=== PATIENT | female | born 1995 | race Caucasian/White ===

== ENCOUNTER 2017-05-08 20:07 | Emergency (ER) | payer BC ==
[2017-05-08 20:34] LABS: Urine Appearance Clear; Urine Color Yellow
[2017-05-08 20:35] LABS: Urine Bilirubin Negative (NEGATIVE); Urine Blood Negative /ul (NEGATIVE); Urine Ketone Negative (NEGATIVE); Urine Nitrite Negative (NEGATIVE); Urine Protein Negative (NEGATIVE); Urine Specific Gravity 1.015 SP.GR. (1.005-1.010); Urine Urobilinogen Normal (NORMAL); Urine pH 6.5 pH (5.0-7.0)
[2017-05-08 20:39] LABS: Urine Bacteria None Seen; Urine RBC None Seen /hpf (0-5); Urine WBC None Seen /hpf (0-5)
--- NOTE | 2017-05-08 21:05 | ERNOTE ---
ER Female HPI Stated Complaint: ABD PAIN Presenting Symptoms: dysuria Time Seen by Provider: 05/08/17 21:04 Source: patient Exam Limitations: no limitations Immunizations: IMMUNIZATION HX Immunizations Up to Date Yes History of Influenza Vaccine No Hx Pneumococcal Vaccination No Allergies/Adverse Reactions: Allergies Penicillins Allergy (Severe, Verified 05/08/17 20:20) Anaphylaxis Home Medications: HOME MEDICATIONS Acetaminophen [Tylenol] 1,000 mg PO PRN PRN 05/08/17 [Last Taken 05/08/17 13:00] Ibuprofen 400 mg PO PRN PRN 05/08/17 [Last Taken 05/08/17 17:00] oxyCODONE HCL/ACETAMINOPHEN [Oxycodone-Acetaminophen 5-325] 1 each PO Q6H PRN # 16 tablet 05/09/17 [Last Taken Unknown] - History of Present Illness Narrative: Patient complains of one day of lower abdominal pain with dysuria. She has been on Clomid for four months, had a regular cycle the last two months, but is having only streaks of blood for this cycle. Pain is right lower quadrant, similar to when her gallbladder was infected, only lower. She has a history of ovarian cysts, she feels this is different because when she stands, she doesn't feel the ovary as she has before. She was seeing a Dr. Stuherland, but her insurance changed, she has an appointment with Dr. Toth late this month. She and her spouse have been actively trying to get . She was vomiting tonight, which is what prompted her to come in here to be looked at. Timing: Present: constant, getting worse Quality: Present: moderate, severe, cramping, stabbing Onset Location: Present: RLQ Activities at Onset: Present: none Prior Abdominal Problems: Present: other - cholecystitis Sexual Millry History: Present: same sex partner Modifying Factors - (Improves): Present: lying down - with the head of the bed raised, rest Modifying Factors - (Worsens): Present: lying down Associated Symptoms: Present: nausea, vomiting, abdominal pain, dysuria, urinary frequency Prior Treatment: Present: recently seen, treated by physician Review of Systems - Review of Systems Constitutional: Absent: recent illness, fever, chills, weakness EYE: Present: no symptoms reported ENT: Absent: ear pain, sore throat Respiratory: Absent: shortness of breath, cough Cardiology: Absent: chest pain, syncope Gastrointestinal/Abdominal: Present: nausea, vomiting, diarrhea - chronic since she had her gallbladder removed Genitourinary: Present: frequency, pain, dysuria Musculoskeletal: Present: back pain - right lower quadrant Skin: Absent: rash Neurological: Present: no symptoms reported - Patient's Past Medical History Patient History - Medical: Chronic Pain, GERD, Obesity, UTI'S, Other Patient History - Cardiac/Respiratory: No pertinent hx Patient History - Cancer: No Hx of Cancer Patient History - Surgical Procedures: Cholecystectomy, T & A Patient History - Other: None LMP (females 10-50): now LMP (Calendar): 01/15/16 - Family History Grandfather-Paternal Family History - Cardiac/Respiratory: Coronary Heart Disease, CHF, Myocardial Infarction Grandmother-Maternal Family History - Cardiac/Respiratory: Coronary Heart Disease - Social History Living Situations: home Psych History: Hx of Bipolar Disorder Smoking Status: Never smoker Alcohol Use: occasionally Drug Use: none - Immunizations Immunizations Up to Date: Yes Hx Pneumococcal Vaccination: No History of Influenza Vaccine: No ED Progress - Results and Orders Patient's Lab Results:: I have reviewed the patient's lab results. Results and Orders: no acute changes noted - Vital Signs Patient's Vital Signs:: I have reviewed the patient's vital signs. Vital Signs: Vital Signs 05/08/17 05/08/17 20:15 20:43 Temperature 36.3 C L Pulse Rate 78 82 Respiratory 18 16 Rate Blood Pressure 133/78 127/65 O2 Sat by Pulse 98 95 Oximetry - CT/Ultrasound CT/Ultrasound Narrative: Ultrasound Pelvis: Unremarkable uterus. 4.8 x 2.8 x 4.0 right ovarian cyst. Doppler flow seen within both ovaries. 8 mm follicle within the left ovary. - Progress/Reassessment Chief Complaint: Genitourinary Problem Plan - Plan Plan: Toradol 30 mg IV - no relief from pain. Dilaudid 2 mg IV - pain down to a 4. Percocet 5/325 mg #4 to go Departure Clinical Impression: Right ovarian cyst, Abdominal pain, RLQ (right lower quadrant) - Departure Disposition: Home self-care Condition: Good Instructions: Ovarian Cyst, [id number] Referrals: Scott Toth DO [Staff Physician] - (2-3 days, please call to see if you can get in sooner than your set appointment on 06/07/2017) Prescriptions: oxyCODONE HCL/ACETAMINOPHEN [Oxycodone-Acetaminophen 5-325] 1 each PO Q6H PRN # 16 tablet PRN Reason: Pain
[2017-05-08 21:09] LABS: Hematocrit 38.1 % (37.0-47.0); Hemoglobin 12.5 gm/dL (12.5-16.0); Mean Cell Volume 84.5 fl (78-100); Mean Corpuscular Hemoglobin 27.7 pg (27-31); Mean Corpuscular Hgb Conc 32.8 g/dl (32-36); Mean Platelet Volume 10.4 fl (6.0-9.5); Neutrophil # 5.7 K/mm3 (1.3-6.0); Neutrophil % 62.5 % (42-75.0); Platelet Count 216 K/mm3 (150-450); Red Blood Count 4.51 M/mm3 (4.2-5.4); Red Cell Distribution Width 13.2 % (11.5-14.0); White Blood Count 9.1 K/mm3 (4.0-10.5)
[2017-05-08 21:21] LABS: Anion Gap 11.4 mmol/L (6.8-13.8); BUN/Creatinine Ratio 10.8 (9.0-21.6); Bilirubin, Total 0.6 mg/dL (0.0-1.1); Calcium * 8.5 mg/dL (7.9-10.9); Potassium 3.4 mmol/L (3.4-4.6); Total Protein 6.8 gm/dL (6.2-8.2)
[2017-05-08] MEDS ORDERED: KETOROLAC TROMETHAMINE 30 MG/ML VIAL IV ONE (22:27)
[2017-05-08] MEDS ORDERED: KETOROLAC TROMETHAMINE 30 MG/ML VIAL ONE (22:34)
[2017-05-09] MEDS ORDERED: HYDROmorphone HCL 2 MG/ML VIAL IV ONE (00:30)
[2017-05-09] MEDS ORDERED: HYDROmorphone HCL 2 MG/ML VIAL ONE (00:31)
[2017-05-09] MEDS ORDERED: oxyCODONE HCL/ACETAMINOPHEN 1 TAB TABLET PO ONE (01:17)
[2017-05-09] MEDS ORDERED: oxyCODONE HCL/ACETAMINOPHEN 1 TAB TABLET ONE (01:20)
[2017-05-09 01:32] VITALS: BP 107/50
== END 2017-05-09 01:31 | disposition home or self-care (01) ==
LOC: ER 20:07
DX: N83.201 Unspecified ovarian cyst, right side (principal); R10.31 Right lower quadrant pain

== ENCOUNTER 2018-07-11 10:15 | Inpatient (IN) ==
[2018-07-11] MEDS ORDERED: OXYTOCIN/DEXTROSE 5%-WATER 30 UNITS/500 ML BAG IV ONE (11:05)
[2018-07-11] MEDS ORDERED: LIDOCAINE HCL 50 ML VIAL PERI PRN (11:05)
[2018-07-11] MEDS ORDERED: RINGER'S SOLUTION,LACTATED 1,000 ML IV ONE (11:05)
[2018-07-11] MEDS ORDERED: DEXTROSE 5%-LACTATED RINGERS 1,000 ML IV PRN (11:05)
[2018-07-11] MEDS: MISOPROSTOL 100 MCG TABLET VG PRN ×2 (11:31→15:31)
[2018-07-11 11:33] LABS: Hematocrit 34.3 % (37.0-47.0); Hemoglobin 11.4 gm/dL (12.5-16.0); Mean Cell Volume 93.2 fl (78-100); Mean Corpuscular Hgb Conc 33.2 g/dl (32-36); Mean Platelet Volume 11.3 fl (8-12.5); Neutrophil # 8.7 K/mm3 (1.3-6.0); Neutrophil % 79.8 % (42-75.0); Platelet Count 167 K/mm3 (150-450); Red Blood Count 3.68 M/mm3 (4.2-5.4); Red Cell Distribution Width 14.2 % (11.5-14.0); White Blood Count 10.9 K/mm3 (4.0-10.5)
[2018-07-11 11:41] LABS: Random Urine Total Protein 17.9 mg/dL (0-12)
[2018-07-11 11:42] LABS: Albumin * 2.1 gm/dl (3.4-5.0); Anion Gap 11.1 mmol/L (6.8-13.8); Bilirubin, Total 0.2 mg/dL (0.0-1.1); Ca. Corrected For Albumin 9.9 mg/dL (8.4-10.2); Calcium * 8.7 mg/dL (7.9-10.9); Carbon Dioxide 23.5 mmol/L (24-32.6); Potassium 3.6 mmol/L (3.4-4.6); Total Protein 6.3 gm/dL (6.2-8.2)
[2018-07-11 11:44] LABS: Cocaine Ur Negative (NEGATIVE); Urine Barbiturate Negative (NEGATIVE); Urine Benzodiazepines Negative (NEGATIVE); Urine Opiates Negative (NEGATIVE); Urine PCP Negative (NEGATIVE); Urine THC Negative (NEGATIVE)
[2018-07-11] MEDS: CLINDAMYCIN PHOSPHATE 900 MG in DEXTROSE 5 % IN WATER 100 ML IV SCH ×4 (11:49→18:49)
--- NOTE | 2018-07-11 17:32 | HP ---
Chief Complaint - Chief Complaint Date of Service: 07/11/18 Time of Service: 17:17 Chief Complaint: elevated blood pressures History of Present Illness: 23 yo at 39 weeks presents to office for routine OB visit with elevated blood pressures. Because of previous intermittent elevated blood pressures over the past couple weeks and at 39wks she was admitted to L&D for induction of labor due to GHTN. Preeclamptic labs were WNL. This complicated by morbid obesity (BMI 54.7), h/o recurrent SAB, biploar d/o, depression, migraines, PCOS with insulin resistance, gestational hypertension. 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 05/2016 Spontaneous x4 Surgical History: Surgical History (Last Reviewed 07/11/18 @ 17:23 by Scott Toth DO) History of myringotomy Onset Date: ~1997 History of tonsillectomy and adenoidectomy Onset Date: ~2004 Hx of cholecystectomy Onset Date: ~2009 Family History: Family History (Last Reviewed 07/05/18 @ 15:39 by Sola Ramey RN) Father Irregular heart beat Mother Rheumatoid arthritis Osteoarthritis Hypoglycemia Grandfather Seizure disorder CHF (congestive heart failure) Grandfather Heart disease CVD-triple bypass Grandmother Diabetes Heart disease COPD (chronic obstructive pulmonary disease) Grandmother Heart disease Hiatal hernia Social History: Preferred Language Yoruba Smoking Status Never smoker Psych History Hx of Bipolar Disorder (Last Updated 07/11/18 @ 10:08 by Scott Toth DO) No Social History Section defined Review Of Systems (GEN) - Review of Systems Generalized/Overall Review: Present: No Symptoms Reported EENTM: Present: No Symptoms Reported Respiratory: Present: No Symptoms Reported Cardiac: Present: No Symptoms Reported Abdominal: Present: No Symptoms Reported Genitourinary: Present: No Symptoms Reported Musculoskeletal: Present: No Symptoms Reported Neurological: Present: No Symptoms Reported Skin: Present: No Symptoms Reported Endocrine: Present: No Symptoms Reported Immunizations: IMMUNIZATION HX Immunizations Up to Date Yes History of Influenza Vaccine No Hx Pneumococcal Vaccination No Allergies/Adverse Reactions: Allergies Allergy/AdvReac Type Severity Reaction Status Date / Time Penicillins Allergy Severe Anaphylaxis Verified 07/11/18 10:26 methylphenidate AdvReac Severe Other Verified 07/11/18 10:27 [From Ritalin] Home Medications: HOME MEDICATIONS Vit37/Iron/Folic Acid [Prenata Chewable Tablet] 1 ea PO DAILY 01/24/18 [Last Taken 07/10/18] Magnesium Oxide [Magnesium] 1,000 mg PO DAILY 04/25/18 [Last Taken 07/10/18] ascorbic acid (vitamin C) 500 mg capsule 500 mg PO DAILY cap 05/08/18 [Last Taken 07/10/18] docusate sodium 100 mg capsule 100 mg PO DAILY 05/23/18 [Last Taken 07/10/18] Ferrous Sulfate [Iron] 325 mg PO DAILY 07/05/18 [Last Taken 07/10/18] Exam - Exam Vital Signs: Vital Signs - Last Taken Temp 36.8 C 07/11/18 10:45 Pulse 86 07/11/18 10:45 Resp 18 07/11/18 10:45 BP 168/78 H 07/11/18 10:45 Pulse Ox 99 07/11/18 10:45 Constitutional: Present: Alert, Oriented x3, Cooperative, No distress ENT Exam: Present: hearing grossly normal Breasts: Present: Exam deferred Respiratory: Present: lungs clear, no respiratory distress Cardiovascular/Chest: Present: normal peripheral pulses, regular rate, rhythm, no edema Abdomen: Present: soft, other - gravid /Rectal: Present: Other - cervix Extremity: Present: non-tender, no calf tenderness, pedal edema Skin Exam: Present: normal color, warm/dry, no cyanosis Lymphatic: Present: no adenopathy Neurologic: Present: alert, normal mood/affect, oriented x 3 Appearance: Present: appropriate appearance, appropriate insight Eye contact: Present: cooperative, good eye contact, normal speech Thoughts: Present: normal thought pattern Diagnostic Studies: Abnormal Lab Results 07/11/18 07/11/18 07/11/18 Range/Units 10:15 11:15 11:15 WBC 10.9 H (4.0-10.5) K/mm3 RBC 3.68 L (4.2-5.4) M/mm3 Hgb 11.4 L (12.5-16.0) gm/dL Hct 34.3 L (37.0-47.0) % RDW 14.2 H (11.5-14.0) % Neutrophils % 79.8 H (42-75.0) % Lymphocytes % 13.7 L (20-51) % Neutrophils # 8.7 H (1.3-6.0) K/mm3 Lymphocytes # 1.49 L (1.5-3.5) k/mm3 Carbon Dioxide 23.5 L (24-32.6) mmol/L Random Glucose 133 H (70-110) mg/dL Albumin 2.1 L (3.4-5.0) gm/dl U Random Total Protein 17.9 H (0-12) mg/dL Laboratory Results WBC 10.9 K/mm3 (4.0-10.5) H 07/11/18 11:15 RBC 3.68 M/mm3 (4.2-5.4) L 07/11/18 11:15 Hgb 11.4 gm/dL (12.5-16.0) L 07/11/18 11:15 Hct 34.3 % (37.0-47.0) L 07/11/18 11:15 MCV 93.2 fl (78-100) 07/11/18 11:15 MCH 31.0 pg (27-31) 07/11/18 11:15 MCHC 33.2 g/dl (32-36) 07/11/18 11:15 RDW 14.2 % (11.5-14.0) H 07/11/18 11:15 Plt Count 167 K/mm3 (150-450) 07/11/18 11:15 MPV 11.3 fl (8-12.5) 07/11/18 11:15 Immature Gran % (Auto) 0.30 % (0.001-0.429) 07/11/18 11:15 Immature Gran # (Auto) 0.03 K/mm3 (0.000-0.0310) 07/11/18 11:15 Neutrophils % 79.8 % (42-75.0) H 07/11/18 11:15 Lymphocytes % 13.7 % (20-51) L 07/11/18 11:15 Monocytes % 4.6 % (0.0-9) 07/11/18 11:15 Eosinophils % 1.4 % (0.0-3.0) 07/11/18 11:15 Basophils % 0.2 % (0.0-1.0) 07/11/18 11:15 Nucleated RBC % 0.0 k/mm3 (0-1) 07/11/18 11:15 Neutrophils # 8.7 K/mm3 (1.3-6.0) H 07/11/18 11:15 Lymphocytes # 1.49 k/mm3 (1.5-3.5) L 07/11/18 11:15 Monocytes # 0.5 k/mm3 (0.0-1.0) 07/11/18 11:15 Eosinophils # 0.2 k/mm3 (0.0-0.7) 07/11/18 11:15 Absolute Basophils 0.0 k/mm3 (0.0-0.1) 07/11/18 11:15 Sodium 135 mmol/L (132-142) 07/11/18 11:15 Plasma Sodium 136 mmol/L (130-142) 07/11/18 11:15 Potassium 3.6 mmol/L (3.4-4.6) 07/11/18 11:15 Chloride 104 mmol/L (97-106) 07/11/18 11:15 Carbon Dioxide 23.5 mmol/L (24-32.6) L 07/11/18 11:15 Anion Gap 11.1 mmol/L (6.8-13.8) 07/11/18 11:15 BUN 6 mg/dL (3-23) 07/11/18 11:15 Creatinine 0.67 mg/dL (0.4-1.4) 07/11/18 11:15 Est GFR (Non-Af Amer) 115 mL/min (60-130) 07/11/18 11:15 BUN/Creatinine Ratio 9.0 (9.0-21.6) 07/11/18 11:15 Random Glucose 133 mg/dL (70-110) H 07/11/18 11:15 Calcium 8.7 mg/dL (7.9-10.9) 07/11/18 11:15 Calcium Adj for Albumin 9.9 mg/dL (8.4-10.2) 07/11/18 11:15 Total Bilirubin 0.2 mg/dL (0.0-1.1) 07/11/18 11:15 AST 17 U/L (0-48) 07/11/18 11:15 ALT 22 U/L (19-67) 07/11/18 11:15 Alkaline Phosphatase 65 U/L (50-170) 07/11/18 11:15 Total Protein 6.3 gm/dL (6.2-8.2) 07/11/18 11:15 Albumin 2.1 gm/dl (3.4-5.0) L 07/11/18 11:15 Ur Random Creatinine 110.9 mg/dL (60-200) 07/11/18 10:15 U Random Total Protein 17.9 mg/dL (0-12) H 07/11/18 10:15 U [place] Prot/Creat Ratio 161 mg/gm (0-199) 07/11/18 10:15 Urine Opiates Screen Negative (NEGATIVE) 07/11/18 10:15 Barbiturate Screen Negative (NEGATIVE) 07/11/18 10:15 Ur Phencyclidine Scrn Negative (NEGATIVE) 07/11/18 10:15 Urine Amphetamine Negative (NEGATIVE) 07/11/18 10:15 U Benzodiazepines Scrn Negative (NEGATIVE) 07/11/18 10:15 Urine Cocaine Screen Negative (NEGATIVE) 07/11/18 10:15 Urine Marijuana (THC) Negative (NEGATIVE) 07/11/18 10:15 NST reactive. FHT 120 bpm, accels with occasional varialbe decels, contractions absent Assessment/Plan - Assessment/Plan (1) Gestational hypertension Assessment: Admit for induction of labor. Epidural PRN. Problem: Acute Qualifiers: Trimester: third trimester Qualified Code(s): O13.3 - Gestational [-induced] hypertension without significant proteinuria, third trimester (2) BMI 50.0-59.9, adult Problem: Chronic (3) Migraines Problem: Chronic Qualifiers: Migraine type: unspecified Status migrainosus presence: without status migrainosus Intractability: not intractable Qualified Code(s): G43.909 - Migraine, unspecified, not intractable, without status migrainosus (4) Bipolar disease during Problem: Chronic Qualifiers: Trimester: third trimester Qualified Code(s): O99.343 - Other mental disorders complicating , third trimester; F31.9 - Bipolar disorder, unspecified (5) Polycystic ovary syndrome Problem: Chronic (6) Insulin resistance Problem: Chronic
--- NOTE | 2018-07-11 18:00 | ANES ---
Anesthesia Pre Procedure Eval Vitals/Labs: Last Vital Signs Temp 36.8 C 07/11/18 10:45 Pulse 88 07/11/18 11:45 Resp 18 07/11/18 11:45 BP 121/56 07/11/18 11:45 Pulse Ox 97 07/11/18 11:45 HOME MEDICATIONS Vit37/Iron/Folic Acid [Prenata Chewable Tablet] 1 ea PO DAILY 01/24/18 [Last Taken 07/10/18] Magnesium Oxide [Magnesium] 1,000 mg PO DAILY 04/25/18 [Last Taken 07/10/18] ascorbic acid (vitamin C) 500 mg capsule 500 mg PO DAILY cap 05/08/18 [Last Taken 07/10/18] docusate sodium 100 mg capsule 100 mg PO DAILY 05/23/18 [Last Taken 07/10/18] Ferrous Sulfate [Iron] 325 mg PO DAILY 07/05/18 [Last Taken 07/10/18] Allergies/Adverse Reactions: Allergies Allergy/AdvReac Type Severity Reaction Status Date / Time Penicillins Allergy Severe Anaphylaxis Verified 07/11/18 10:26 methylphenidate AdvReac Severe Other Verified 07/11/18 10:27 [From Ritalin] - Planned Procedure Planned Procedure: INDUCTION Medication List Reviewed:: Yes Allergies Verified: Yes Medical History (Last Reviewed 07/11/18 @ 17:58 by Lópze Lujan CRNA) Bipolar disorder Depression Hyperinsulinemia Insulin resistance Onset Date: ~05/10/17 Irritable bowel syndrome Migraine Morbid obesity PCOS (polycystic ovarian syndrome) Bacterial vaginosis Chlamydia Onset Date: ~2013 Irregular menstrual cycle Ovarian cyst PID (pelvic inflammatory disease) Onset Date: ~2013 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 05/2016 Spontaneous x4 Surgical History (Last Reviewed 07/11/18 @ 17:58 by López Lujan CRNA) History of myringotomy Onset Date: ~1997 History of tonsillectomy and adenoidectomy Onset Date: ~2004 Hx of cholecystectomy Onset Date: ~2009 Family History (Last Reviewed 07/11/18 @ 17:58 by López Lujan CRNA) Father Irregular heart beat Mother Rheumatoid arthritis Osteoarthritis Hypoglycemia Grandfather Seizure disorder CHF (congestive heart failure) Grandfather Heart disease CVD-triple bypass Grandmother Diabetes Heart disease COPD (chronic obstructive pulmonary disease) Grandmother Heart disease Hiatal hernia - Family Anesthesia History Family History:: no untoward family reactions to anesthesia, no familial bleeding tendencies, no family history of clotting disorders, no family history of premature - Airway/Neck/Teeth Within Normal Limits:: Yes Teeth Condition: Intact Neck Exam: non-tender, full range of motion Mallampatti Score: 2 Thyromental (T-M) distance: > 6 cm Mandibulo Hyoid distance: > 3 cm - Respiratory Respiratory: chest non-tender Discussed smoking cessation including day of surgery: Yes Sleep Apnea currently treated: No Sleep Apnea by current assessment: No - possible by habitus Discussed Risks/Treatment of MARCELA: No - Cardiovascular Patient History - Cardiac/Respiratory: No pertinent hx Tolerates Activity: Fair Heart Sounds: S1 & S2, Regular - Anesthesia Assessment and Plan ASA Class: PS, III, E Anesthesia Type Plan: Epidural
--- NOTE | 2018-07-11 19:46 | PN ---
Progess Note - Interim Date: 07/11/18 Time: 19:39 Narrative: 07/11/18 19:39 Patient rates her contractions 4 out of 10 Vital signs stable. Status post Cytotec 2 doses FHT: 120 baseline, reassuring Contractions q 5 min Cervix: 09/06/-3, cervical Dorsey bulb placed without difficulty and filled to 75 mL of saline Impression: Intrauterine at 39 weeks induction of labor for gestational hypertension. GBS carrier - status post clindamycin 2 doses Plan: Continue with induction of labor
--- NOTE | 2018-07-11 21:37 | PN ---
Progess Note - Interim Date: 07/11/18 Time: 21:35 Narrative: 07/11/18 21:35 Patient becoming much more uncomfortable with contractions Vital signs stable. FHT: 125 baseline, reassuring Contractions q 1-2 min Cervix: 2 cm, Dorsey bulb still in place Impression: Intrauterine at 39 weeks induction of labor for gestational hypertension Plan: Continue present plan
[2018-07-11] MEDS ORDERED: ONDANSETRON HCL/PF 2 MG/ML VIAL IV PRN (23:09)
[2018-07-12] MEDS ORDERED: BUPIVACAINE HCL/0.9 % NACL/PF 250 ML EP PRN (01:42)
[2018-07-12] MEDS ORDERED: ONDANSETRON HCL/PF 2 MG/ML VIAL IV PRN ×2 (01:42→20:33)
[2018-07-12] MEDS ORDERED: NALOXONE HCL 1 MG/1 ML SYRG IV PRN (01:42)
[2018-07-12] MEDS ORDERED: fentaNYL CITRATE/PF 50 MCG/ML AMPUL IT SCH (01:45)
--- NOTE | 2018-07-12 02:22 | ANES ---
Anesthesia Pre Procedure Eval Vitals/Labs: Last Vital Signs Temp 36.2 C 07/12/18 01:53 Pulse 84 07/12/18 01:53 Resp 20 07/12/18 01:53 BP 137/65 07/12/18 01:53 Pulse Ox 99 07/12/18 01:53 HOME MEDICATIONS Vit37/Iron/Folic Acid [Prenata Chewable Tablet] 1 ea PO DAILY 01/24/18 [Last Taken 07/10/18] Magnesium Oxide [Magnesium] 1,000 mg PO DAILY 04/25/18 [Last Taken 07/10/18] ascorbic acid (vitamin C) 500 mg capsule 500 mg PO DAILY cap 05/08/18 [Last Taken 07/10/18] docusate sodium 100 mg capsule 100 mg PO DAILY 05/23/18 [Last Taken 07/10/18] Ferrous Sulfate [Iron] 325 mg PO DAILY 07/05/18 [Last Taken 07/10/18] Allergies/Adverse Reactions: Allergies Allergy/AdvReac Type Severity Reaction Status Date / Time Penicillins Allergy Severe Anaphylaxis Verified 07/11/18 10:26 methylphenidate AdvReac Severe Other Verified 07/11/18 10:27 [From Ritalin] - Planned Procedure Planned Procedure: INDUCTION Medication List Reviewed:: Yes Allergies Verified: Yes Medical History (Last Reviewed 07/12/18 @ 02:20 by López Lujan CRNA) Bipolar disorder Depression Hyperinsulinemia Insulin resistance Onset Date: ~05/10/17 Irritable bowel syndrome Migraine Morbid obesity PCOS (polycystic ovarian syndrome) Bacterial vaginosis Chlamydia Onset Date: ~2013 Irregular menstrual cycle Ovarian cyst PID (pelvic inflammatory disease) Onset Date: ~2013 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 05/2016 Spontaneous x4 Surgical History (Last Reviewed 07/12/18 @ 02:20 by López Lujan CRNA) History of myringotomy Onset Date: ~1997 History of tonsillectomy and adenoidectomy Onset Date: ~2004 Hx of cholecystectomy Onset Date: ~2009 Family History (Last Reviewed 07/12/18 @ 02:21 by López Lujan CRNA) Father Irregular heart beat Mother Rheumatoid arthritis Osteoarthritis Hypoglycemia Grandfather Seizure disorder CHF (congestive heart failure) Grandfather Heart disease CVD-triple bypass Grandmother Diabetes Heart disease COPD (chronic obstructive pulmonary disease) Grandmother Heart disease Hiatal hernia - Family Anesthesia History Family History:: no untoward family reactions to anesthesia, no familial bleeding tendencies, no family history of clotting disorders, no family history of premature - Airway/Neck/Teeth Within Normal Limits:: Yes Teeth Condition: Intact Neck Exam: non-tender, full range of motion Mallampatti Score: 2 Thyromental (T-M) distance: > 6 cm Mandibulo Hyoid distance: > 3 cm - Respiratory Respiratory: chest non-tender, lungs clear Smoking Status: Never smoker Sleep Apnea currently treated: No Sleep Apnea by current assessment: No - Cardiovascular Patient History - Cardiac/Respiratory: No pertinent hx Tolerates Activity: Fair Heart Sounds: S1 & S2, Regular - Anesthesia Assessment and Plan ASA Class: PS, III, E Anesthesia Type Plan: Epidural
--- NOTE | 2018-07-12 02:51 | ANES ---
Post Anesthesia Discharge - Transfer of Care Transfer of Care handoff given to nurse: Yes - Discharge from PACU Discharge from PACU when meets criteria: Yes - Comfortable now
--- NOTE | 2018-07-12 02:54 | ANES ---
Anesthesia Procedure Note Procedure Note: ANESTHESIA PROCEDURE NOTE Date of Procedure: 07/12/2018 Time of procedure: To 2:25 AM. Performed by: López Lujan CRNA, MSN Bench Assembler Battery: Gwendolyn Medina RN. Preprocedure diagnosis: Active labor, labor pain. Post procedure diagnosis: Same. Procedure:Epidural for labor analgesia L3 4. Indications: Labor pain. Findings: See below. Details of the procedure: The patient was placed on the side of the bed in sitting positionand prepped with DuraPrep then draped in a sterile fashion. Lidocaine 1% was infiltrated to the skin and subcutaneous tissues at the level of the L3 4 interspace. An 18-gauge Touhy needle was used to approach the epidural space with loss of resistance technique. Once loss of resistance was achieved a 27-gauge spinal needle was passed through the epidural needle and CSF was contacted. After CSF returned, 20 mcg of fentanyl was injected in the spinal needle was removed the epidural catheter was then threaded approximately 4 cm in the epidural needle was removed. The catheter was taped in place and after careful aspiration 3 mL of 1.5% lidocaine with 1-200,000 epinephrine was injected without change in maternal heart rate or sensorium. . EBL: Minimal. Fluids: N/A. Specimen: N/A. Post procedure condition: The patient tolerated the procedure well with good relief. No complications were noted. Thank you for this consultation. López Lujan CRNA, MSN
--- NOTE | 2018-07-12 03:05 | ANES ---
Post Anesthesia Assessment - Vital Signs Vitals: Last Vital Signs Temp 36.2 C 07/12/18 01:53 Pulse 84 07/12/18 01:53 Resp 20 07/12/18 01:53 BP 137/65 07/12/18 01:53 Pulse Ox 99 07/12/18 01:53 Airway Patency: Normal - Mental Status Level Of Consciousness: Awake, Alert - Pain Level Pain Score: 0 - N/V Assessment Nausea/Vomiting Presence: None Dehydration:: No
[2018-07-12] MEDS: CLINDAMYCIN PHOSPHATE 900 MG in DEXTROSE 5 % IN WATER 100 ML IV SCH ×6 (03:39→18:13)
--- NOTE | 2018-07-12 17:24 | PN ---
Progess Note - Interim Date: 07/12/18 Time: 17:18 Narrative: 07/12/18 17:18 Patient comfortable with epidural Vital signs stable. Pitocin at 20 mu/min. FHT: 135 baseline, reassuring Contractions q 1-3 min Cervix: 4/40/-4 Impression: Intrauterine at 39-1/7 weeks induction of labor for gestational hypertension. Group B strep carrier-status post clindamycin 4 doses Plan: Patient is been 4 cm for the past 4-1/2 hours. If no cervical change with the next do position changes will proceed with primary low transverse section.
[2018-07-12] MEDS ORDERED: ceFAZolin SODIUM 3 GM in DEXTROSE 5 % IN WATER 100 ML IV ONE ×2 (17:52)
[2018-07-12] MEDS ORDERED: RINGER'S SOLUTION,LACTATED 1,000 ML IV PRN (17:52)
[2018-07-12] MEDS ORDERED: OXYTOCIN 20 UNITS in RINGER'S SOLUTION,LACTATED 1,000 ML IV ONE (17:52)
[2018-07-12] MEDS ORDERED: AZTREONAM 2 GM in DEXTROSE 5 % IN WATER 100 ML IV ONE ×2 (18:02)
--- NOTE | 2018-07-12 18:25 | ANES ---
Anesthesia Pre Procedure Eval Vitals/Labs: Last Vital Signs Temp 36.2 C 07/12/18 01:53 Pulse 84 07/12/18 01:53 Resp 20 07/12/18 01:53 BP 137/65 07/12/18 01:53 Pulse Ox 99 07/12/18 01:53 HOME MEDICATIONS Vit37/Iron/Folic Acid [Prenata Chewable Tablet] 1 ea PO DAILY 01/24/18 [Last Taken 07/10/18] Magnesium Oxide [Magnesium] 1,000 mg PO DAILY 04/25/18 [Last Taken 07/10/18] ascorbic acid (vitamin C) 500 mg capsule 500 mg PO DAILY cap 05/08/18 [Last Taken 07/10/18] docusate sodium 100 mg capsule 100 mg PO DAILY 05/23/18 [Last Taken 07/10/18] Ferrous Sulfate [Iron] 325 mg PO DAILY 07/05/18 [Last Taken 07/10/18] Allergies/Adverse Reactions: Allergies Allergy/AdvReac Type Severity Reaction Status Date / Time Penicillins Allergy Severe Anaphylaxis Verified 07/11/18 10:26 methylphenidate AdvReac Severe Other Verified 07/11/18 10:27 [From Ritalin] - Planned Procedure Planned Procedure: INDUCTION Medication List Reviewed:: Yes Allergies Verified: Yes Medical History (Last Reviewed 07/12/18 @ 18:24 by Jorge A Izaguirre CRNA) Bipolar disorder Depression Hyperinsulinemia Insulin resistance Onset Date: ~05/10/17 Irritable bowel syndrome Migraine Morbid obesity PCOS (polycystic ovarian syndrome) Bacterial vaginosis Chlamydia Onset Date: ~2013 Irregular menstrual cycle Ovarian cyst PID (pelvic inflammatory disease) Onset Date: ~2013 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 05/2016 Spontaneous x4 Surgical History (Last Reviewed 07/12/18 @ 18:24 by Jorge A Izaguirre CRNA) History of myringotomy Onset Date: ~1997 History of tonsillectomy and adenoidectomy Onset Date: ~2004 Hx of cholecystectomy Onset Date: ~2009 Family History (Last Reviewed 07/12/18 @ 18:24 by Jorge A Izaguirre CRNA) Father Irregular heart beat Mother Rheumatoid arthritis Osteoarthritis Hypoglycemia Grandfather Seizure disorder CHF (congestive heart failure) Grandfather Heart disease CVD-triple bypass Grandmother Diabetes Heart disease COPD (chronic obstructive pulmonary disease) Grandmother Heart disease Hiatal hernia - Family Anesthesia History Family History:: no untoward family reactions to anesthesia - Airway/Neck/Teeth Within Normal Limits:: Yes Teeth Condition: Intact Denture Type: None Neck Exam: full range of motion, normal inspection Mallampatti Score: 2 Thyromental (T-M) distance: > 6 cm Mandibulo Hyoid distance: > 3 cm - Respiratory Respiratory: lungs clear, normal breath sounds Smoking Status: Never smoker Sleep Apnea currently treated: No Sleep Apnea by current assessment: No - Cardiovascular Patient History - Cardiac/Respiratory: No pertinent hx Tolerates Activity: Fair Heart Sounds: S1 & S2, Regular - Anesthesia Assessment and Plan ASA Class: PS, III, E Anesthesia Type Plan: Epidural
--- NOTE | 2018-07-12 18:48 | PN ---
Progess Note - Interim Date: 07/12/18 Time: 18:47 Narrative: 07/12/18 18:47 Patient has made no cervical change. head still unengaged. Will proceed with primary low transverse section. All questions answered. tracing remains reassuring.
--- NOTE | 2018-07-12 20:25 | ANES ---
Post Anesthesia Discharge - Transfer of Care Transfer of Care handoff given to nurse: Yes - Discharge from PACU Discharge from PACU when meets criteria: Yes
--- NOTE | 2018-07-12 20:26 | ANES ---
Post Anesthesia Assessment - Vital Signs Vitals: Last Vital Signs Temp 37.2 C 07/12/18 20:10 Pulse 88 07/12/18 20:15 Resp 16 07/12/18 20:15 BP 84/49 L 07/12/18 20:15 Pulse Ox 98 07/12/18 20:15 Airway Patency: Normal - Mental Status Level Of Consciousness: Awake - Pain Level Pain Score: 0 - N/V Assessment Nausea/Vomiting Presence: None Dehydration:: No
--- NOTE | 2018-07-12 20:27 | OR ---
Operative Report - Dictated Report Narrative: Indication: 23 year old 5 para 0 at 39-1/7 weeks admitted for induction of labor due to gestational hypertension. After 32 hours of induction with maximum Pitocin patient failed to progress past 4 cm/40/-4 Status: Planned Pre Operative Diagnosis: Intrauterine at 39-1/7 weeks, arrest of dilation, arrest of descent, morbid obesity with BMI of 54.7, history of recurrent SAB, bipolar disorder, PCOS with insulin resistance Post Operative Diagnosis: Same. Procedure Preformed: Primary Low Transverse Section Surgeon: Janeen Toth DO Market Research Specialist: Bubba Medrano M.D. Anesthesia: Epidural Estimated Blood Loss: 900 mL Urine Output: 200 mL Fluids Given: 1200 mL Drains: Bradley to gravity Surgical Complications: None Specimens: Placenta to freezer Findings: Female born at 1919 on 07/12/2019 with Apgars 8 and 9, weighing 3079 g in cephalic presentation with nuchal cord 2. Normal uterus, tubes, ovaries. Technique: The patient was taken to the operating room and placed in dorsal supine position with a left lateral tilt. After adequate epidural anesthesia, bradley catheter insertion,SCDs placed, and 900 mg of clindamycin and 2 g of aztreonam IV given preoperatively, the abdominal cavity was entered via a modified Cleveland-Jenkins incision. Two rolled laps were placed in the pericolic gutters on either side of the uterus. A transverse incision was made in the lower uterine segment and extended laterally and upwardly with digital traction. Clear fluid was noted upon amniotomy. The was delivered easily. The cord was clamped and cut and was handed off to awaiting pediatricians. The placenta was allowed to deliver spontaneously. The uterus was cleared of clot and debris. Uterine incision was closed with 0 Vicryl using a running stitch. A second imbricating layer was placed. Excellent hemostasis was noted. Rolled laps were removed from the abdominal cavitiy. The peritoneum was closed with a running 3-0 Monocryl. The same suture was used to approximate the rectus and pyramidalis muscles. The fascia was closed with a running 0 Vicryl. The subcutaneous layer was closed with a running 3-0 Monocryl in 2 layers. The same suture was used to approximate the subdermal layer. The skin was closed with a running 4-0 Monocryl and Dermabond. Sponge, lap, needle, and instrument count were correct x 2. Disposition: The patient was transferred to post anesthesia care unit in good condition History for MU Definition: * The number of deliveries resulting in a live the patient experienced prior to current hospitalization * The previous delivery of live twins or any live multiple gestation is considered one live event. *If primagravida or nulliparous is documented select zero for the number of previous live births. Live Events: 0
[2018-07-12] MEDS ORDERED: SIMETHICONE 80 MG TAB.CHEW PO PRN (20:33)
[2018-07-12] MEDS ORDERED: BISACODYL 10 MG SUPP.RECT RC PRN (20:33)
[2018-07-12] MEDS ORDERED: oxyCODONE HCL/ACETAMINOPHEN 1 TAB TABLET PO PRN (20:33)
[2018-07-12] MEDS ORDERED: SENNOSIDES 8.6 MG TABLET PO PRN (20:33)
[2018-07-12] MEDS: DOCUSATE SODIUM 100 MG CAPSULE PO SCH (21:42)
[2018-07-12] MEDS: oxyCODONE HCL/ACETAMINOPHEN 1 TAB TABLET PO PRN (21:42)
[2018-07-12] MEDS: IBUPROFEN 800 MG TABLET PO PRN (21:43)
[2018-07-13] MEDS: oxyCODONE HCL/ACETAMINOPHEN 1 TAB TABLET PO PRN ×5 (02:28→22:58)
[2018-07-13] MEDS: IBUPROFEN 800 MG TABLET PO PRN ×4 (03:51→22:59)
[2018-07-13] MEDS: ENOXAPARIN SODIUM 40 MG/0.4 ML SYRG SC SCH (04:46)
[2018-07-13] MEDS ORDERED: ASCORBIC ACID 500 MG PO SCH (09:00)
[2018-07-13] MEDS ORDERED: NON-FORMULARY 1 DOSE DOSE (Ferrous Sulfate [Iron] 325 MG) PO SCH (09:00)
[2018-07-13] MEDS ORDERED: MAGNESIUM OXIDE 1000 MG PO SCH (09:00)
[2018-07-13] MEDS ORDERED: FOLIC ACID PO SCH (09:00)
[2018-07-13] MEDS ORDERED: [UNRECOGNIZED DRUG - OTHER] PO SCH (09:00)
[2018-07-13] MEDS ORDERED: PRENATAL VIT37 PO SCH (09:00)
[2018-07-13] MEDS ORDERED: IRON PO SCH (09:00)
[2018-07-13] MEDS: DOCUSATE SODIUM 100 MG CAPSULE PO SCH ×2 (09:42→20:16)
[2018-07-14] MEDS: oxyCODONE HCL/ACETAMINOPHEN 1 TAB TABLET PO PRN ×5 (03:08→21:41)
[2018-07-14] MEDS: ENOXAPARIN SODIUM 40 MG/0.4 ML SYRG SC SCH (05:07)
[2018-07-14] MEDS: IBUPROFEN 800 MG TABLET PO PRN ×3 (05:08→17:37)
[2018-07-14] MEDS: DOCUSATE SODIUM 100 MG CAPSULE PO SCH ×2 (11:49→20:56)
--- NOTE | 2018-07-14 12:01 | PN ---
Subjective - Date and Time Seen Date: 07/14/18 Time: 12:00 Objective - Vitals Vitals: Last Vital Signs Temp 36.1 C 07/14/18 08:14 Pulse 96 07/14/18 08:14 Resp 18 07/14/18 08:14 BP 128/67 07/14/18 09:52 Pulse Ox 99 07/14/18 08:14 Patient denies complaints. Ambulating well. Tolerating regular diet. Pain well controlled. Lochia wnl. Abdomen - soft, appropriately tender Incision - clean, dry, intact Uterus - firm, at umbilicus -2 No calf tenderness Impression: Post op day #2 s/p primary section. Plan: Continue routine post-operative/ care Cauti Physician Documentation - Urinary Catheter Management Urethral (Dorsey) Date of Insertion: 07/12/18 Time of Insertion: 03:30 Assessment/Plan - Problems/Diagnosis (1) Gestational hypertension Problem: Acute Qualifiers: Trimester: third trimester Qualified Code(s): O13.3 - Gestational [-induced] hypertension without significant proteinuria, third trimester (2) BMI 50.0-59.9, adult Problem: Chronic (3) Migraines Problem: Chronic Qualifiers: Migraine type: unspecified Status migrainosus presence: without status migrainosus Intractability: not intractable Qualified Code(s): G43.909 - Migraine, unspecified, not intractable, without status migrainosus (4) Bipolar disease during Problem: Chronic Qualifiers: Trimester: third trimester Qualified Code(s): O99.343 - Other mental disorders complicating , third trimester; F31.9 - Bipolar disorder, unspecified (5) Polycystic ovary syndrome Problem: Chronic (6) Insulin resistance Problem: Chronic
[2018-07-15] MEDS: IBUPROFEN 800 MG TABLET PO PRN ×2 (02:02→08:08)
[2018-07-15] MEDS: oxyCODONE HCL/ACETAMINOPHEN 1 TAB TABLET PO PRN ×2 (02:02→07:03)
[2018-07-15] MEDS: ENOXAPARIN SODIUM 40 MG/0.4 ML SYRG SC SCH (04:17)
[2018-07-15] MEDS: DOCUSATE SODIUM 100 MG CAPSULE PO SCH (08:08)
[2018-07-15 08:26] VITALS: BP 133/85
--- NOTE | 2018-07-15 14:15 | PN ---
Subjective - Date and Time Seen Date: 07/15/18 Time: 14:14 Objective - Vitals Vitals: Last Vital Signs Temp 36.2 C 07/15/18 08:10 Pulse 88 07/15/18 08:10 Resp 18 07/15/18 08:10 BP 133/85 07/15/18 08:10 Pulse Ox 99 07/15/18 08:10 Patient denies complaints. Ambulating without difficulty. Tolerating regular diet. Pain well controlled. Lochia wnl. Abdomen - soft, appropriately tender Incision - clean, dry, intact Uterus - firm, at umbilicus -3 No calf tenderness Impression: Post op day #3 s/p primary section. Gestational hypertension-resolved Plan: Routine discharge instructions Cauti Physician Documentation - Urinary Catheter Management Urethral (Dorsey) Date of Insertion: 07/12/18 Time of Insertion: 03:30 Assessment/Plan - Problems/Diagnosis (1) Gestational hypertension Problem: Acute Qualifiers: Trimester: third trimester Qualified Code(s): O13.3 - Gestational [-induced] hypertension without significant proteinuria, third trimester (2) BMI 50.0-59.9, adult Problem: Chronic (3) Migraines Problem: Chronic Qualifiers: Migraine type: unspecified Status migrainosus presence: without status migrainosus Intractability: not intractable Qualified Code(s): G43.909 - Migraine, unspecified, not intractable, without status migrainosus (4) Bipolar disease during Problem: Chronic Qualifiers: Trimester: third trimester Qualified Code(s): O99.343 - Other mental disorders complicating , third trimester; F31.9 - Bipolar disorder, unspecified (5) Polycystic ovary syndrome Problem: Chronic (6) Insulin resistance Problem: Chronic
--- NOTE | 2018-07-18 09:43 | PN ---
Subjective - Date and Time Seen Date: 07/13/18 - LATE ENTRY Time: 12:50 Objective - Vitals Vitals: Last Vital Signs LATE NOTE. Patient denies complaints. Tolerating regular diet. Ambulating without dif ficulty. Pain well controlled. Lochia wnl. Abdomen - soft, appropriately tender Incision - clean, dry, intact Uterus - firm, at umbilicus -1 No calf tenderness Impression: Post op day #1 s/p primary section. Plan: Continue routine post-operative/ care Cauti Physician Documentation - Urinary Catheter Management Urethral (Dorsey) Date of Insertion: 07/12/18 Time of Insertion: 03:30 Assessment/Plan - Problems/Diagnosis (1) Gestational hypertension Problem: Acute Qualifiers: Trimester: third trimester Qualified Code(s): O13.3 - Gestational [-induced] hypertension without significant proteinuria, third trimester (2) BMI 50.0-59.9, adult Problem: Chronic (3) Migraines Problem: Chronic Qualifiers: Migraine type: unspecified Status migrainosus presence: without status ab rainosus Intractability: not intractable Qualified Code(s): G43.909 - Migraine, unspecified, not intractable, without status migrainosus (4) Bipolar disease during Problem: Chronic Qualifiers: Trimester: third trimester Qualified Code(s): O99.343 - Other mental disorders complicating , third trimester; F31.9 - Bipolar disorder, unspecified (5) Polycystic ovary syndrome Problem: Chronic (6) Insulin resistance Problem: Chronic
== END 2018-07-15 13:50 | disposition home or self-care (01) | DRG 787 ==
LOC: OB 10:15
PROVIDERS: ADMIT Obstetrics & Gynecology; ATTEND Obstetrics & Gynecology
CPT/HCPCS: 36415; 59025; 80053; 80307; 82570; 84155; 84156; 85025; G0479; J2405